=== PATIENT | female | born 1945 | race Caucasian/White ===

== ENCOUNTER → 2017-03-08 | Outpatient (CLI) | payer MEDICARE ==
[~2017-03-08] MED LIST: ACCOLATE20 MG PO; ASPIRIN81 M1 PO; BIOTIN1000 MCG PO; CIPRO500 MG PO; DAILY VITAMIN1 TAB PO; DELTASONE20 MG PO; DULE1ARO1 INH; DUONEB 3 MG/3 ML3 M1 INH; ESIDREX,ORETI12.5 MG PO; LIPITOR40 MG PO; LISINOPRIL20 MG PO; LOPRESSOR25 MG PO; LYRICA75 M1 PO; MOTRIN800 MG PO; NEURONTIN600 MG PO; NITROSTAT0.4 MG SL; PLAVIX75 MG PO; PREDNISONE5 MG PO; PRINIVIL40 MG PO; RESTORIL30 M1 PO; SYNTHROID,LEV100 MCG PO; THYROXIN PO; ULTRAM50 MG PO; ZYRTEC10 MG PO; ZYRTEC5 M1 PO
[2017-03-08 08:04] LABS: BASO # 0.1 10*3/uL (0.0-0.1); BASO % 0.6 % (0.0-1.0); EOS # 0.3 10*3/uL (0.0-0.4); EOS % 3.9 % (1.0-4.0); HEMATOCRIT 40.8 % (37.0-47.0); HEMOGLOBIN 12.9 g/dl (12.0-16.0); LYMPH # 2.8 10*3/uL (1.3-4.4); LYMPH % 34.8 % (27.0-41.0); MEAN CELL VOLUME 92.5 fl (81.0-99.0); MEAN CORPUSCULAR HGB 29.3 pg (27.0-31.0); MEAN CORPUSCULAR HGB CONC 31.6 g/dl (33.0-37.0); MONO % 12.3 % (3.0-9.0); NEUT # 3.8 10*3/uL (2.3-7.9); NEUT % 48.1 % (47.0-73.0); PLATELET COUNT AUTOMATED 279 10*3/uL (130-400); RED BLOOD COUNT 4.41 10*6/uL (4.10-5.10); RED CELL DISTRI WIDTH 13.2 % (0-14.5); WHITE BLOOD COUNT 7.9 10*3/uL (4.8-10.8)
[2017-03-08 08:31] LABS: ALBUMIN 3.2 gm/dl (3.1-4.5); ALKALINE PHOSPHATASE 111 U/L (45-117); BILIRUBIN, DIRECT 0.2 mg/dL (0.0-0.2); BILIRUBIN, TOTAL 1.3 mg/dl (0.2-1.0); BUN 15 mg/dl (7-24); CARBON DIOXIDE 30 mmol/L (21-32); CHLORIDE 107 mmol/L (98-107); CHOLESTEROL 132 mg/dL (<200); EST GLOM FILT AFRICAN AMERICAN > 60 ml/min; GLUCOSE 94 mg/dL (65-99); HDL CHOLESTEROL 60 mg/dl (40-60); LDL CHOLESTEROL 47 mg/dL (9-159); POTASSIUM 3.9 mmol/L (3.5-5.1); SGOT/AST 30 IU/L (3-35); SGPT/ALT 27 U/L (12-78); SODIUM 144 mmol/L (136-145); TOTAL PROTEIN 7.3 gm/dL (6.4-8.2); TRIGLYCERIDES 125 mg/dl (<150); VLDL CHOLESTEROL 25 mg/dL (6-40)
== END | disposition home or self-care (01) ==
LOC: LAB 07:13 → CARD 08:00
PROVIDERS: Internal Medicine Interventional Cardiology
DX: I08.1 Rheumatic disorders of both mitral and tricuspid valves (principal); I25.10 Atherosclerotic heart disease of native coronary artery without angina pectoris; I37.1 Nonrheumatic pulmonary valve insufficiency

== ENCOUNTER 2017-07-27 07:09 | Inpatient (IN) | payer MEDICARE ==
[~2017-07-27] VITALS: Ht 162.5 cm; Wt 95.3 kg
--- NOTE | ~2017-07-27 | WRIGHTHP ---
[place], [place] PATIENT HISTORY AND PHYSICAL EXAM [id number] UN[facility] #: [id number] ROOM: 421 DOCTOR: SHREE HERRING MD BIRTHDATE: [birth year] DOS: 07/27/2017 HISTORY OF PRESENT ILLNESS: The patient is 72 years old. The patient is very well known to us. She was on her way to [facility] for her swimming class yesterday morning. She got out of the car and was standing outside the car trying to get her bag out when she became dizzy. She thought she would stand for a few minutes so the dizziness to pass, but when she woke up, she was on the floor and had bruises on her face. The [facility] personnel called the ambulance and was brought to the emergency room. She does not have any history of incontinence of bowel or bladder, did not bite her tongue. She does not remember the events preceding to the syncopal episode. She denies having any chest pains or palpitations. She has been feeling good, but she has had 2 episodes where her legs would not move for her. She is unable to explain it properly, but she feels that her legs have their own mind, they feel floppy at times. She has been taking all her medications regularly. She has had some issues with hypotension recently and the meds have been slowly cut back. PAST MEDICAL HISTORY: 1. Coronary artery disease with history of stenting. 2. Benign hypertension. 3. Chronic back pain. 4. Spinal stenosis, multiple lumbar laminectomies with chronic peripheral neuropathy. 5. of the thyroid papillary with hypothyroidism. MEDICATIONS: She is on are levothyroxine, Neurontin, lisinopril, metoprolol, atorvastatin, aspirin, and Restoril p.r.n. SOCIAL HISTORY: Nonsmoker, does not use any alcohol. PHYSICAL EXAMINATION: GENERAL: The patient is awake and alert and oriented, able to tell me the story preceding this admission. VITAL SIGNS: Blood pressure is 110/59, pulse of 79, respirations 18, temperature 97.9. LUNGS: Diminished breath sounds. No wheezes, rales or rhonchi heard. HEART: Regular. ABDOMEN: Obese, soft, nontender. EXTREMITIES: Without any edema. ASSESSMENT AND PLAN: 1. Vasovagal syncope, most likely responsible for the event, but since she has had some neurological symptoms recently, we will go ahead and arrange for EEG and MRI of the brain as an outpatient. 2. History of coronary artery disease, a stress test will be scheduled as an outpatient. 3. Benign hypertension. Pressures are on the low side. She is advised to take the metoprolol in the morning. The lisinopril dosage will be cut down to 10 mg and she takes that in the evening. 4. Facial lacerations. Tetanus toxoid will be given today. [place], [place] PATIENT HISTORY AND PHYSICAL EXAM NAME: LUDY VELEZ UNIT #: [id number] ROOM: [facility] DOCTOR: SHREE HERRING MD BIRTHDATE: [birth year] SHREE HERRING MD CM:HISPHYS:PATIENT HISTORY AND PHYSICAL EXAMINATION 9 9 SHREE HERRING MD 07/28/17828 interface
[2017-07-27 07:15] VITALS: BP 144/78
[2017-07-27 07:44] LABS: BASO # 0.1 10*3/uL (0.0-0.1); BASO % 0.7 % (0.0-1.0); EOS # 0.3 10*3/uL (0.0-0.4); EOS % 3.7 % (1.0-4.0); HEMATOCRIT 42.9 % (37.0-47.0); HEMOGLOBIN 13.8 g/dl (12.0-16.0); LYMPH # 2.3 10*3/uL (1.3-4.4); LYMPH % 24.9 % (27.0-41.0); MEAN CELL VOLUME 88.1 fl (81.0-99.0); MEAN CORPUSCULAR HGB 28.3 pg (27.0-31.0); MEAN CORPUSCULAR HGB CONC 32.2 g/dl (33.0-37.0); MEAN PLATELET VOLUME 10.6 fl (9.6-12.3); MONO # 0.9 10*3/uL (0.1-1.0); MONO % 10.2 % (3.0-9.0); NEUT # 5.4 10*3/uL (2.3-7.9); NEUT % 60.1 % (47.0-73.0); PLATELET COUNT AUTOMATED 278 10*3/uL (130-400); RED BLOOD COUNT 4.87 10*6/uL (4.10-5.10); RED CELL DISTRI WIDTH 13.3 % (0-14.5)
[2017-07-27 08:00] LABS: BUN 11 mg/dl (7-24); CHLORIDE 105 mmol/L (98-107); CREATININE 0.93 mg/dL (0.55-1.02); POTASSIUM 3.9 mmol/L (3.5-5.1); SODIUM 140 mmol/L (136-145); TROPONIN I < 0.015 ng/ml (<0.045)
[2017-07-27 08:15] VITALS: BP 134/74
[2017-07-27 09:58] VITALS: BP 132/68
--- NOTE | 2017-07-27 09:58 | NUR ---
A 72, admitted to , under the services of SHREE Underwood MD with a diagnosis of SYNCOPE AND COLLAPSE, CONTUSION OF FACE. Chief complaint is SYNCOPE. Patient arrived via CART from ER. Monitor applied. Initial assessment completed. Vital signs taken and recorded. SHREE UNDERWOOD MD notified of admission to the unit. Orders received. See assessment for past medical history, medications and allergies. Patient and/or family oriented to unit. [facility] visitation policy reviewed. Clothing/patient valuable form completed. SHANNON NGUYEN
[2017-07-27] MEDS ORDERED: RESTORIL30 M1 PO (10:03)
[2017-07-27] MEDS ORDERED: GOOD NEIGHBOR650 MG PO (10:05)
[2017-07-27] MEDS ORDERED: NORVASC10 MG PO (10:08)
--- NOTE | 2017-07-27 10:15 | NUR ---
MED REQ UP TO DATE WOUNDS TO THE FACE AND LEFT CHEEK NOTED FROM SYNCOPAL EPISODE. PICTURES TAKEN PER PROTOCOL.
[2017-07-27] MEDS ORDERED: PAIN RELIEVER650 MG PO (10:50)
[2017-07-27] MEDS ORDERED: BIOTIN10000 MC1 PO (10:51)
--- NOTE | 2017-07-27 11:07 | NUR ---
LEFT MESSAGE WITH ANSWERING SERVICE REGARDING CONSULT FROM DR. MERIDA. WAITING A CALL BACK
--- NOTE | 2017-07-27 11:20 | NUR ---
DR. ROBERTSON CALLED IN AND STATED THAT HE IS COVERING FOR DR. MERIDA AND HE WILL BE HERE TO SEE THE PATIENT WITH IN THE HOUR.
[2017-07-27 12:00] VITALS: BP 112/57
[2017-07-27 16:00] VITALS: BP 115/55
--- NOTE | 2017-07-27 16:15 | NUR ---
PT. IS RESTING IN BED WITH HOB ELEVATED AND CALL LIGHT WITHIN REACH, VISITING WITH DAUGHTER. PT. HAS C/O HEADACHE AT THIS TIME, PRN TYLENOL IS UNABLE TO BE GIVEN AT THIS PRESENT MOMENT, WHEN ASKED IF SHE WANTED DR. HERRING CONTACTED FOR A STRONGER PAIN MEDICATION PT. DENIED. STATING "JUST BRING ME THE TYLENOL WHEN IT IS READY". SEE SHIFT ASSESSMENT.
--- NOTE | 2017-07-27 17:37 | NUR ---
PRN TYLENOL GIVEN FOR PT. C/O A HEADACHE, RATING PAIN A 4/10. WILL MONITOR EFFECT
--- NOTE | 2017-07-27 18:00 | NUR ---
PRN TYLENOL SEEMS EFFECTIVE, PT. IS SLEEPING COMFORTABLY IN BED AT THIS TIME. RESPERS ARE EASY AND REGULAR WITH NO DISTRESS NOTED AT THIS TIME. CALL LIGHT IS WITHIN REACH, WILL CONTINUE TO MONITOR.
[2017-07-27 20:00] VITALS: BP 119/53
[2017-07-28] VITALS: BP 110/59
[2017-07-28 06:13] LABS: BASO # 0.1 10*3/uL (0.0-0.1); BASO % 0.9 % (0.0-1.0); EOS # 0.3 10*3/uL (0.0-0.4); EOS % 4.8 % (1.0-4.0); LYMPH # 2.5 10*3/uL (1.3-4.4); LYMPH % 36.4 % (27.0-41.0); MEAN CELL VOLUME 89.2 fl (81.0-99.0); MEAN CORPUSCULAR HGB 29.1 pg (27.0-31.0); MEAN CORPUSCULAR HGB CONC 32.6 g/dl (33.0-37.0); MEAN PLATELET VOLUME 11.4 fl (9.6-12.3); MONO # 0.8 10*3/uL (0.1-1.0); MONO % 12.3 % (3.0-9.0); NEUT # 3.1 10*3/uL (2.3-7.9); NEUT % 45.3 % (47.0-73.0); PLATELET COUNT AUTOMATED 240 10*3/uL (130-400); RED BLOOD COUNT 3.99 10*6/uL (4.10-5.10); RED CELL DISTRI WIDTH 13.5 % (0-14.5); WHITE BLOOD COUNT 6.7 10*3/uL (4.8-10.8)
[2017-07-28 06:14] LABS: HEMATOCRIT 35.6 % (37.0-47.0); HEMOGLOBIN 11.6 g/dl (12.0-16.0)
[2017-07-28 08:00] VITALS: BP 124/82; BP 146/76
[2017-07-28] MEDS ORDERED: LISINOPRIL20 MG PO ×2 (08:03→08:07)
--- NOTE | 2017-07-28 11:11 | NUR ---
[facility] Discharge instructions reviewed with patient/family. Patient receptive and verbalizes understanding. Follow-up care arranged. Written instructions given to patient/family. REGINALD MANUEL
== END 2017-07-28 11:11 | disposition home or self-care (01) | DRG 312 ==
LOC: ED 07:09 → EDHOLD 09:00 → 4E 09:54
PROVIDERS: Emergency Medicine; ADMIT Internal Medicine
DX: R55 Syncope and collapse (principal); G62.9 Polyneuropathy, unspecified; S00.83XA Contusion of other part of head, initial encounter; E66.9 Obesity, unspecified; I10 Essential (primary) hypertension; E89.0 Postprocedural hypothyroidism; G89.29 Other chronic pain; M54.9 Dorsalgia, unspecified; M48.061 Spinal stenosis, lumbar region without neurogenic claudication; I25.10 Atherosclerotic heart disease of native coronary artery without angina pectoris; W18.39XA Other fall on same level, initial encounter; Z98.61 Coronary angioplasty status; Z91.041 Radiographic dye allergy status; Z88.8 Allergy status to other drugs, medicaments and biological substances; Z79.899 Other long term (current) drug therapy; Z79.82 Long term (current) use of aspirin; Z98.51 Tubal ligation status; Z83.3 Family history of diabetes mellitus; Z82.49 Family history of ischemic heart disease and other diseases of the circulatory system; Y93.89 Activity, other specified; Y92.89 Other specified places as the place of occurrence of the external cause; Y99.8 Other external cause status

== ENCOUNTER → 2017-08-02 | Outpatient (CLI) | payer MEDICARE ==
[~2017-08-02] MED LIST changes: +BIOTIN10000 MC1 PO; +GOOD NEIGHBOR650 MG PO; +NORVASC10 MG PO; +PAIN RELIEVER650 MG PO
== END | disposition home or self-care (01) ==
LOC: MRI 09:26
DX: I25.9 Chronic ischemic heart disease, unspecified (principal)

== ENCOUNTER → 2017-08-15 | Outpatient (CLI) | payer MEDICARE | END | disposition home or self-care (01) | LOC: CP 00:40 | DX: R51 Headache (principal) ==

== ENCOUNTER → 2017-11-14 | Outpatient (CLI) | payer MEDICARE | END | disposition home or self-care (01) | LOC: MAMMO 10:13 | DX: Z12.31 Encounter for screening mammogram for malignant neoplasm of breast (principal); Z13.820 Encounter for screening for osteoporosis; N95.9 Unspecified menopausal and perimenopausal disorder ==

== ENCOUNTER 2018-02-21 11:35 | Emergency (ER) | payer MEDICARE ==
[~2018-02-21] VITALS: Ht 162.5 cm; Wt 90.7 kg
[2018-02-21 12:40] LABS: BASO # 0.1 10*3/uL (0.0-0.1); BASO % 0.7 % (0.0-1.0); EOS # 0.2 10*3/uL (0.0-0.4); HEMATOCRIT 40.1 % (37.0-47.0); HEMOGLOBIN 12.7 g/dl (12.0-16.0); LYMPH # 2.4 10*3/uL (1.3-4.4); LYMPH % 29.9 % (27.0-41.0); MEAN CELL VOLUME 91.3 fl (81.0-99.0); MEAN CORPUSCULAR HGB 28.9 pg (27.0-31.0); MEAN CORPUSCULAR HGB CONC 31.7 g/dl (33.0-37.0); MEAN PLATELET VOLUME 11.2 fl (9.6-12.3); MONO # 0.9 10*3/uL (0.1-1.0); MONO % 11.1 % (3.0-9.0); NEUT # 4.5 10*3/uL (2.3-7.9); NEUT % 55.1 % (47.0-73.0); PLATELET COUNT AUTOMATED 250 10*3/uL (130-400); RED BLOOD COUNT 4.39 10*6/uL (4.10-5.10); RED CELL DISTRI WIDTH 13.2 % (0-14.5); WHITE BLOOD COUNT 8.1 10*3/uL (4.8-10.8)
[2018-02-21 13:25] LABS: BILIRUBIN NEGATIVE (NEGATIVE); BLOOD NEGATIVE (NEGATIVE); CLARITY CLOUDY (CLEAR); COLOR YELLOW (YELLOW); GLUCOSE NEGATIVE (NEGATIVE); KETONE NEGATIVE (NEGATIVE); LEUKO ESTERASE 1+ (NEGATIVE); NITRITE POSITIVE (NEGATIVE); PH 5.5 (5.0-9.0); SPECIFIC GRAVITY 1.015 (1.005-1.030)
[2018-02-21 13:32] LABS: BACTERIA 4+
[2018-02-21 13:43] LABS: ALKALINE PHOSPHATASE 103 U/L (45-117); BUN 12 mg/dl (7-24); CHLORIDE 111 mmol/L (98-107); CREATININE 0.76 mg/dL (0.55-1.02); LIPASE 95 U/L (73-393); POTASSIUM 3.9 mmol/L (3.5-5.1); SGOT/AST 17 IU/L (3-35); SGPT/ALT 15 U/L (12-78); SODIUM 144 mmol/L (136-145); TOTAL PROTEIN 6.6 gm/dL (6.4-8.2)
[2018-02-21 13:46] LABS: TROPONIN I < 0.015 ng/ml (<0.045)
[2018-02-21] MEDS ORDERED: MACROBID100 M1 PO (14:21)
== END 2018-02-21 14:25 | disposition home or self-care (01) ==
LOC: ED 11:35
PROVIDERS: Emergency Medicine
DX: N39.0 Urinary tract infection, site not specified (principal); I10 Essential (primary) hypertension; Z79.899 Other long term (current) drug therapy; Z79.82 Long term (current) use of aspirin; Z88.1 Allergy status to other antibiotic agents; Z91.041 Radiographic dye allergy status; Z88.8 Allergy status to other drugs, medicaments and biological substances

== ENCOUNTER → 2018-05-05 | Outpatient (CLI) | payer MEDICARE ==
[~2018-05-05] MED LIST changes: +MACROBID100 M1 PO
[2018-05-05 07:41] LABS: BASO # 0.1 10*3/uL (0.0-0.1); BASO % 0.6 % (0.0-1.0); EOS # 0.3 10*3/uL (0.0-0.4); EOS % 4.1 % (1.0-4.0); HEMATOCRIT 42.1 % (37.0-47.0); HEMOGLOBIN 13.3 g/dl (12.0-16.0); LYMPH # 2.8 10*3/uL (1.3-4.4); LYMPH % 33.3 % (27.0-41.0); MEAN CELL VOLUME 90.7 fl (81.0-99.0); MEAN CORPUSCULAR HGB 28.7 pg (27.0-31.0); MEAN CORPUSCULAR HGB CONC 31.6 g/dl (33.0-37.0); MEAN PLATELET VOLUME 11.2 fl (9.6-12.3); MONO % 11.4 % (3.0-9.0); NEUT # 4.2 10*3/uL (2.3-7.9); NEUT % 50.4 % (47.0-73.0); PLATELET COUNT AUTOMATED 249 10*3/uL (130-400); RED BLOOD COUNT 4.64 10*6/uL (4.10-5.10); RED CELL DISTRI WIDTH 13.1 % (0-14.5); WHITE BLOOD COUNT 8.3 10*3/uL (4.8-10.8)
[2018-05-05 08:07] LABS: ALBUMIN 3.2 gm/dl (3.1-4.5); BUN 11 mg/dl (7-24); CHLORIDE 106 mmol/L (98-107); CHOLESTEROL 154 mg/dL (<200); CREATININE 0.79 mg/dL (0.55-1.02); POTASSIUM 4.1 mmol/L (3.5-5.1); SGOT/AST 13 IU/L (3-35); SGPT/ALT 14 U/L (12-78); SODIUM 141 mmol/L (136-145); TRIGLYCERIDES 140 mg/dl (<150); VLDL CHOLESTEROL 28 mg/dL (6-40)
[2018-05-05 08:15] LABS: ALKALINE PHOSPHATASE 108 U/L (45-117); CPK 110 U/L (26-192); FREE T4 1.63 ng/dl (0.76-1.46); HDL CHOLESTEROL 53 mg/dl (40-60); LDL CHOLESTEROL 73 mg/dL (9-159); THYROID STIM HORMONE (HS) 0.019 uIU/ml (0.358-4.75)
[2018-05-05 09:09] LABS: VITAMIN D, 25-HYDROXY 27.7 ng/mL (30-100)
== END | disposition home or self-care (01) ==
LOC: LAB 06:59
PROVIDERS: Internal Medicine
DX: R53.81 Other malaise (principal); E55.9 Vitamin D deficiency, unspecified; R74.8 Abnormal levels of other serum enzymes; D51.9 Vitamin B12 deficiency anemia, unspecified; D52.9 Folate deficiency anemia, unspecified; R79.89 Other specified abnormal findings of blood chemistry; E78.2 Mixed hyperlipidemia; E03.9 Hypothyroidism, unspecified

== ENCOUNTER → 2018-06-13 | Day surgery (SDC) | payer MEDICARE ==
[~2018-06-13] VITALS: Ht 162.5 cm; Wt 88.5 kg
[~2018-06-13] MED LIST changes: +PRAVASTATIN SOD40 MG PO
--- NOTE | ~2018-06-13 | PROC NOTE ---
[place], [place] PROCEDURE NOTE NAME: LUDY VELEZ UNIT #: [id number] ROOM: DOCTOR: KEILA KHOURY,FERMÍN BIRTHDATE: [birth year] DOS: PROCEDURE: Colonoscopy and polypectomy. INDICATIONS: Colon cancer screening and a family history of colon cancer. Informed consent was obtained from the patient after indication of procedures, the procedures, the alternatives, and potential complications were explained to her. PROCEDURE MEDICATION: Sedation was administered by Anesthesiology Department. Scope used was Olympus pediatric colonoscope variable stiffness GIF-180, depth of insertion was to the cecum, which was identified by the usual landmarks, the appendiceal orifice, ileocecal valve and triangular fold, in addition to transillumination in the right lower quadrant. FINDINGS: After adequate sedation, the patient was placed in left lateral decubitus position. Rectal examination showed a normal sphincter tone and no external hemorrhoids. Scope was introduced into the rectum, then advanced to the cecum. No difficulty. The prep was adequate. Colon mucosa showed three polyps. An 8 mm descending colon polyp and 2 rectal polyps, 8 and 10 mm in diameter. Both polyps were removed with the cold mini snare and recovered. The remaining colon mucosa appeared within normal range with no evidence of diverticular ulcerations or obstructing lesions. Retroflexed views in the rectum showed grade 1 internal hemorrhoids. The scope was then withdrawn after the rectum was decompressed. The patient tolerated the procedure well. IMPRESSION: 1. Colon polyps x3, removed. 2. Small internal hemorrhoids. PLAN: We will review the histopathology report and treat the patient accordingly. Office followup will be scheduled in 2-3 weeks. FERMÍN PEDRAZA MD CM:PROCNOTE:PROCEDURE NOTE [id number] SHREE PEDRAZA MD
[2018-06-13 07:00] VITALS: BP 163/61
[2018-06-13 08:38] VITALS: BP 135/60
[2018-06-13 08:50] VITALS: BP 147/60
[2018-06-13 09:09] VITALS: BP 152/64
== END | disposition home or self-care (01) ==
LOC: SDC 06-10 02:00
DX: D12.8 Benign neoplasm of rectum (principal); D12.4 Benign neoplasm of descending colon; K63.5 Polyp of colon; K64.0 First degree hemorrhoids; I10 Essential (primary) hypertension; I25.10 Atherosclerotic heart disease of native coronary artery without angina pectoris; I25.2 Old myocardial infarction; E78.5 Hyperlipidemia, unspecified; E66.9 Obesity, unspecified; G89.29 Other chronic pain; G62.9 Polyneuropathy, unspecified; E89.0 Postprocedural hypothyroidism; J45.909 Unspecified asthma, uncomplicated; Z98.51 Tubal ligation status; Z98.890 Other specified postprocedural states; Z88.5 Allergy status to narcotic agent; Z88.8 Allergy status to other drugs, medicaments and biological substances; Z91.041 Radiographic dye allergy status; Z95.5 Presence of coronary angioplasty implant and graft; Z68.33 Body mass index [BMI] 33.0-33.9, adult; Z80.0 Family history of malignant neoplasm of digestive organs; Z82.49 Family history of ischemic heart disease and other diseases of the circulatory system

== ENCOUNTER → 2018-08-01 | Outpatient (CLI) | payer MEDICARE | END | disposition home or self-care (01) | LOC: LAB 07:38 | DX: R73.9 Hyperglycemia, unspecified (principal) ==

== ENCOUNTER → 2018-08-04 | Outpatient (CLI) | payer MEDICARE | END | disposition home or self-care (01) | LOC: MRI 01:53 | DX: M47.892 Other spondylosis, cervical region (principal); M48.02 Spinal stenosis, cervical region ==

== ENCOUNTER → 2018-10-02 | Outpatient (CLI) | payer MEDICARE | END | disposition home or self-care (01) | DX: M54.5 Low back pain (principal) ==

== ENCOUNTER → 2019-02-26 | Outpatient (CLI) | payer MEDICARE | END | disposition home or self-care (01) | LOC: MAMMO 10:30 | DX: Z12.31 Encounter for screening mammogram for malignant neoplasm of breast (principal); N95.9 Unspecified menopausal and perimenopausal disorder; M85.88 Other specified disorders of bone density and structure, other site ==

== ENCOUNTER → 2019-04-30 | Outpatient (CLI) | payer MEDICARE ==
[2019-04-30 07:43] LABS: BASO % 0.4 % (0.0-1.0); EOS # 0.6 10*3/uL (0.0-0.4); EOS % 6.3 % (1.0-4.0); HEMATOCRIT 43.6 % (37.0-47.0); HEMOGLOBIN 13.8 g/dl (12.0-16.0); LYMPH # 2.7 10*3/uL (1.3-4.4); LYMPH % 30.2 % (27.0-41.0); MEAN CELL VOLUME 93.4 fl (81.0-99.0); MEAN CORPUSCULAR HGB 29.6 pg (27.0-31.0); MEAN CORPUSCULAR HGB CONC 31.7 g/dl (33.0-37.0); MEAN PLATELET VOLUME 10.9 fl (9.6-12.3); MONO # 0.8 10*3/uL (0.1-1.0); MONO % 9.4 % (3.0-9.0); NEUT # 4.8 10*3/uL (2.3-7.9); NEUT % 53.3 % (47.0-73.0); PLATELET COUNT AUTOMATED 276 10*3/uL (130-400); RED BLOOD COUNT 4.67 10*6/uL (4.10-5.10); RED CELL DISTRI WIDTH 12.8 % (0-14.5)
[2019-04-30 08:14] LABS: ALBUMIN 3.3 gm/dl (3.1-4.5); ALKALINE PHOSPHATASE 88 U/L (45-117); BUN 16 mg/dl (7-24); CHLORIDE 108 mmol/L (98-107); CHOLESTEROL 155 mg/dL (<200); CREATININE 0.81 mg/dL (0.55-1.02); FREE T4 1.57 ng/dl (0.76-1.46); HDL CHOLESTEROL 60 mg/dl (40-60); LDL CHOLESTEROL 78 mg/dL (9-159); POTASSIUM 3.8 mmol/L (3.5-5.1); SGOT/AST 13 IU/L (3-35); SGPT/ALT 16 U/L (12-78); SODIUM 141 mmol/L (136-145); TRIGLYCERIDES 86 mg/dl (<150); VLDL CHOLESTEROL 17 mg/dL (6-40)
[2019-04-30 08:19] LABS: THYROID STIM HORMONE (HS) 0.033 uIU/ml (0.358-4.75)
[2019-04-30 09:36] LABS: VITAMIN D, 25-HYDROXY 41.6 ng/mL (30-100)
== END | disposition home or self-care (01) ==
LOC: LAB 07:08
PROVIDERS: Internal Medicine
DX: Z13.1 Encounter for screening for diabetes mellitus (principal); E78.2 Mixed hyperlipidemia; E53.8 Deficiency of other specified B group vitamins; E55.9 Vitamin D deficiency, unspecified; I10 Essential (primary) hypertension

== ENCOUNTER → 2020-02-15 | Outpatient (CLI) | payer MEDICARE | END | disposition home or self-care (01) | LOC: CT 10:00 | DX: N28.1 Cyst of kidney, acquired (principal); K82.8 Other specified diseases of gallbladder; M47.816 Spondylosis without myelopathy or radiculopathy, lumbar region ==

== ENCOUNTER → 2020-03-09 | Outpatient (CLI) | payer MEDICARE | END | disposition home or self-care (01) | LOC: US 10:23 | DX: N28.1 Cyst of kidney, acquired (principal) ==

== ENCOUNTER → 2020-05-24 | Outpatient (CLI) | payer MEDICARE ==
[~2020-05-24] MED LIST changes: +CEFUROXIME AXE500 MG PO
[2020-05-24 08:23] LABS: BASO % 0.5 % (0.0-1.0); EOS # 0.3 10*3/uL (0.0-0.4); EOS % 3.6 % (1.0-4.0); HEMATOCRIT 45.4 % (37.0-47.0); LYMPH # 2.3 10*3/uL (1.3-4.4); LYMPH % 28.8 % (27.0-41.0); MEAN CELL VOLUME 92.8 fl (81.0-99.0); MEAN CORPUSCULAR HGB CONC 31.3 g/dl (33.0-37.0); MEAN PLATELET VOLUME 10.9 fl (9.6-12.3); MONO # 0.9 10*3/uL (0.1-1.0); MONO % 10.9 % (3.0-9.0); NEUT # 4.4 10*3/uL (2.3-7.9); NEUT % 55.3 % (47.0-73.0); PLATELET COUNT AUTOMATED 317 10*3/uL (130-400); RED BLOOD COUNT 4.89 10*6/uL (4.10-5.10); RED CELL DISTRI WIDTH 12.6 % (0-14.5)
[2020-05-24 08:40] LABS: ALBUMIN 3.2 gm/dl (3.1-4.5); ALKALINE PHOSPHATASE 102 U/L (45-117); BUN 13 mg/dl (7-24); CHLORIDE 109 mmol/L (98-107); CHOLESTEROL 175 mg/dL (<200); CREATININE 0.78 mg/dL (0.55-1.02); FREE T4 1.43 ng/dl (0.76-1.46); HDL CHOLESTEROL 55 mg/dl (40-60); LDL CHOLESTEROL 102 mg/dL (9-159); POTASSIUM 4.1 mmol/L (3.5-5.1); SGOT/AST 13 IU/L (3-35); SGPT/ALT 14 U/L (12-78); SODIUM 144 mmol/L (136-145); TOTAL PROTEIN 7.6 gm/dL (6.4-8.2); TRIGLYCERIDES 90 mg/dl (<150); VLDL CHOLESTEROL 18 mg/dL (6-40)
[2020-05-24 08:44] LABS: THYROID STIM HORMONE (HS) 0.011 uIU/ml (0.358-4.75)
[2020-05-24 09:25] LABS: VITAMIN D, 25-HYDROXY 49.4 ng/mL (30-100)
== END | disposition home or self-care (01) ==
LOC: LAB 07:15
PROVIDERS: Internal Medicine
DX: M48.062 Spinal stenosis, lumbar region with neurogenic claudication (principal); E03.9 Hypothyroidism, unspecified; I10 Essential (primary) hypertension; R21 Rash and other nonspecific skin eruption; B35.4 Tinea corporis; R70.0 Elevated erythrocyte sedimentation rate; R79.82 Elevated C-reactive protein (CRP); R74.8 Abnormal levels of other serum enzymes; R79.89 Other specified abnormal findings of blood chemistry; R53.81 Other malaise; E55.9 Vitamin D deficiency, unspecified

== ENCOUNTER → 2020-07-29 | Outpatient (CLI) | payer MEDICARE ==
[~2020-07-29] MED LIST changes: +CYMBALTA30 MG PO
== END | disposition home or self-care (01) ==
LOC: COVID19 00:24
PROVIDERS: ATTEND Ophthalmology
DX: Z01.812 Encounter for preprocedural laboratory examination (principal); Z20.828 Contact with and (suspected) exposure to other viral communicable diseases

== ENCOUNTER → 2020-08-03 | Day surgery (SDC) | payer MEDICARE ==
[~2020-08-03] VITALS: Ht 167.6 cm; Wt 83.9 kg
[2020-08-03 07:22] VITALS: BP 149/61
[2020-08-03 08:21] VITALS: BP 144/65
[2020-08-03 08:36] VITALS: BP 144/66
[2020-08-03 08:51] VITALS: BP 144/65
== END ==
LOC: SDC 07-29 11:45
PROVIDERS: ATTEND Ophthalmology
DX: H25.812 Combined forms of age-related cataract, left eye (principal); I10 Essential (primary) hypertension; I25.10 Atherosclerotic heart disease of native coronary artery without angina pectoris; Z95.5 Presence of coronary angioplasty implant and graft; J45.909 Unspecified asthma, uncomplicated; Z88.1 Allergy status to other antibiotic agents; Z88.2 Allergy status to sulfonamides; Z98.890 Other specified postprocedural states; Z98.51 Tubal ligation status; Z88.8 Allergy status to other drugs, medicaments and biological substances; Z79.899 Other long term (current) drug therapy

== ENCOUNTER 2020-10-24 12:29 | Inpatient (IN) | payer MEDICARE ==
[~2020-10-24] VITALS: Ht 162.5 cm; Wt 83.5 kg
[2020-10-24 12:56] VITALS: BP 130/62
[2020-10-24 13:05] LABS: BASO % 0.5 % (0.0-1.0); EOS # 0.1 10*3/uL (0.0-0.4); EOS % 0.8 % (1.0-4.0); HEMATOCRIT 44.1 % (37.0-47.0); LYMPH # 1.2 10*3/uL (1.3-4.4); LYMPH % 16.3 % (27.0-41.0); MEAN CELL VOLUME 93.4 fl (81.0-99.0); MEAN CORPUSCULAR HGB 29.4 pg (27.0-31.0); MEAN CORPUSCULAR HGB CONC 31.5 g/dl (33.0-37.0); MEAN PLATELET VOLUME 10.6 fl (9.6-12.3); MONO # 0.2 10*3/uL (0.1-1.0); MONO % 2.8 % (3.0-9.0); NEUT # 5.9 10*3/uL (2.3-7.9); NEUT % 78.9 % (47.0-73.0); PLATELET COUNT AUTOMATED 303 10*3/uL (130-400); RED BLOOD COUNT 4.72 10*6/uL (4.10-5.10); RED CELL DISTRI WIDTH 12.8 % (0-14.5); WHITE BLOOD COUNT 7.5 10*3/uL (4.8-10.8)
[2020-10-24 13:17] LABS: ACT PARTIAL THROMBO TIME 28.1 SECONDS (20.0-32.1)
[2020-10-24 13:22] LABS: ALBUMIN 3.3 gm/dl (3.1-4.5); ALKALINE PHOSPHATASE 77 U/L (45-117); BUN 14 mg/dl (7-24); CHLORIDE 108 mmol/L (98-107); CREATININE 0.76 mg/dL (0.55-1.02); POTASSIUM 4.3 mmol/L (3.5-5.1); SGOT/AST 18 IU/L (3-35); SGPT/ALT 18 U/L (12-78); SODIUM 138 mmol/L (136-145); TOTAL PROTEIN 7.3 gm/dL (6.4-8.2)
[2020-10-24 13:23] LABS: TROPONIN I < 0.015 ng/ml (<0.045)
[2020-10-24 18:26] VITALS: BP 179/87
[2020-10-24] MEDS ORDERED: ZESTRIL20 MG PO (18:53)
[2020-10-24] MEDS ORDERED: OXYGEN NAS (18:54)
[2020-10-24 20:00] VITALS: BP 175/87
[2020-10-25] VITALS: BP 180/70
[2020-10-25 08:00] VITALS: BP 154/73
[2020-10-25 12:00] VITALS: BP 150/67
[2020-10-25 16:00] VITALS: BP 143/52
[2020-10-25 20:00] VITALS: BP 149/57
[2020-10-26] VITALS: BP 110/79
[2020-10-26 06:26] LABS: BASO % 0.1 % (0.0-1.0); HEMATOCRIT 41.3 % (37.0-47.0); LYMPH # 1.1 10*3/uL (1.3-4.4); LYMPH % 7.8 % (27.0-41.0); MEAN CELL VOLUME 92.2 fl (81.0-99.0); MEAN CORPUSCULAR HGB 29.2 pg (27.0-31.0); MEAN CORPUSCULAR HGB CONC 31.7 g/dl (33.0-37.0); MEAN PLATELET VOLUME 10.6 fl (9.6-12.3); MONO # 0.6 10*3/uL (0.1-1.0); MONO % 4.1 % (3.0-9.0); NEUT % 87.1 % (47.0-73.0); PLATELET COUNT AUTOMATED 340 10*3/uL (130-400); RED BLOOD COUNT 4.48 10*6/uL (4.10-5.10); WHITE BLOOD COUNT 13.8 10*3/uL (4.8-10.8)
[2020-10-26 06:45] LABS: BUN 23 mg/dl (7-24); CHLORIDE 109 mmol/L (98-107); CREATININE 0.68 mg/dL (0.55-1.02); POTASSIUM 4.1 mmol/L (3.5-5.1); SGOT/AST 30 IU/L (3-35); SGPT/ALT 21 U/L (12-78); SODIUM 140 mmol/L (136-145); TOTAL PROTEIN 6.6 gm/dL (6.4-8.2)
[2020-10-26 06:46] LABS: ALKALINE PHOSPHATASE 69 U/L (45-117)
[2020-10-26 08:00] VITALS: BP 151/71
[2020-10-26 11:58] VITALS: BP 156/64
[2020-10-26 16:00] VITALS: BP 151/73
[2020-10-26 20:00] VITALS: BP 143/60
[2020-10-27] VITALS: BP 167/58
[2020-10-27 07:04] LABS: BASO % 0.1 % (0.0-1.0); LYMPH % 8.1 % (27.0-41.0); MEAN CELL VOLUME 92.1 fl (81.0-99.0); MEAN CORPUSCULAR HGB 29.2 pg (27.0-31.0); MEAN CORPUSCULAR HGB CONC 31.7 g/dl (33.0-37.0); MONO % 7.8 % (3.0-9.0); NEUT # 10.6 10*3/uL (2.3-7.9); NEUT % 83.3 % (47.0-73.0); PLATELET COUNT AUTOMATED 327 10*3/uL (130-400); RED BLOOD COUNT 4.45 10*6/uL (4.10-5.10); RED CELL DISTRI WIDTH 12.9 % (0-14.5); WHITE BLOOD COUNT 12.7 10*3/uL (4.8-10.8)
[2020-10-27 07:22] LABS: ALBUMIN 2.8 gm/dl (3.1-4.5); BUN 25 mg/dl (7-24); CHLORIDE 111 mmol/L (98-107); CREATININE 0.77 mg/dL (0.55-1.02); POTASSIUM 4.3 mmol/L (3.5-5.1); SGOT/AST 22 IU/L (3-35); SODIUM 141 mmol/L (136-145)
[2020-10-27 07:24] LABS: ALKALINE PHOSPHATASE 72 U/L (45-117); SGPT/ALT 24 U/L (12-78); TOTAL PROTEIN 6.3 gm/dL (6.4-8.2)
[2020-10-27 08:00] VITALS: BP 148/63
[2020-10-27] MEDS ORDERED: CEFUROXIME AXE250 MG PO (09:06)
[2020-10-27] MEDS ORDERED: PREDNISONE5 MG PO (09:06)
[2020-10-27] MEDS ORDERED: BREO ELLIPTA 11 EACH DEVI (09:10)
== END 2020-10-27 10:55 | disposition home or self-care (01) | DRG 202 ==
LOC: ED 12:29 → EDHOLD 15:23 → 4E 15:23 → EDHOLD 15:24 → 4E 17:35
PROVIDERS: Emergency Medicine; Internal Medicine Critical Care Medicine; ADMIT Internal Medicine; ATTEND Internal Medicine
DX: J45.901 Unspecified asthma with (acute) exacerbation (principal); J44.1 Chronic obstructive pulmonary disease with (acute) exacerbation; J44.0 Chronic obstructive pulmonary disease with (acute) lower respiratory infection; E44.1 Mild protein-calorie malnutrition; J20.9 Acute bronchitis, unspecified; M48.00 Spinal stenosis, site unspecified; I10 Essential (primary) hypertension; Z20.822 Contact with and (suspected) exposure to COVID-19; E89.0 Postprocedural hypothyroidism; I25.10 Atherosclerotic heart disease of native coronary artery without angina pectoris; I44.7 Left bundle-branch block, unspecified; Z82.49 Family history of ischemic heart disease and other diseases of the circulatory system; Z83.3 Family history of diabetes mellitus; Z88.2 Allergy status to sulfonamides; Z88.1 Allergy status to other antibiotic agents; Z91.041 Radiographic dye allergy status; Z88.8 Allergy status to other drugs, medicaments and biological substances

== ENCOUNTER → 2021-05-25 | Outpatient (CLI) | payer MEDICARE ==
[~2021-05-25] MED LIST changes: +BREO ELLIPTA 11 EACH DEVI; +CEFUROXIME AXE250 MG PO; +OXYGEN NAS; +ZESTRIL20 MG PO
[2021-05-25 08:00] LABS: BASO # 0.1 10*3/uL (0.0-0.1); BASO % 0.8 % (0.0-1.0); EOS # 0.4 10*3/uL (0.0-0.4); EOS % 5.1 % (1.0-4.0); HEMATOCRIT 42.5 % (37.0-47.0); LYMPH # 2.6 10*3/uL (1.3-4.4); MEAN CELL VOLUME 92.2 fl (81.0-99.0); MEAN CORPUSCULAR HGB 29.7 pg (27.0-31.0); MEAN CORPUSCULAR HGB CONC 32.2 g/dl (33.0-37.0); MEAN PLATELET VOLUME 10.8 fl (9.6-12.3); MONO # 0.9 10*3/uL (0.1-1.0); NEUT # 3.7 10*3/uL (2.3-7.9); NEUT % 47.8 % (47.0-73.0); PLATELET COUNT AUTOMATED 256 10*3/uL (130-400); RED BLOOD COUNT 4.61 10*6/uL (4.10-5.10); RED CELL DISTRI WIDTH 12.9 % (0-14.5); WHITE BLOOD COUNT 7.8 10*3/uL (4.8-10.8)
[2021-05-25 08:26] LABS: ALBUMIN 3.2 gm/dl (3.1-4.5); ALKALINE PHOSPHATASE 86 U/L (45-117); BUN 13 mg/dl (7-24); CHLORIDE 110 mmol/L (98-107); CHOLESTEROL 165 mg/dL (<200); CREATININE 0.78 mg/dL (0.55-1.02); FREE T4 1.28 ng/dl (0.76-1.46); LDL CHOLESTEROL 84 mg/dL (9-159); POTASSIUM 4.2 mmol/L (3.5-5.1); SGOT/AST 14 IU/L (3-35); SGPT/ALT 15 U/L (12-78); SODIUM 144 mmol/L (136-145); TRIGLYCERIDES 142 mg/dl (<150)
[2021-05-25 08:30] LABS: THYROID STIM HORMONE (HS) 0.013 uIU/ml (0.358-4.75)
[2021-05-25 08:51] LABS: VITAMIN D, 25-HYDROXY 47.7 ng/mL (30-100)
== END | disposition home or self-care (01) ==
LOC: LAB 07:37 → RAD 14:00 → MAMMO 14:30
PROVIDERS: ATTEND Internal Medicine
DX: Z13.820 Encounter for screening for osteoporosis (principal); Z12.31 Encounter for screening mammogram for malignant neoplasm of breast; I10 Essential (primary) hypertension; E03.9 Hypothyroidism, unspecified; E78.2 Mixed hyperlipidemia; E55.9 Vitamin D deficiency, unspecified; Z78.0 Asymptomatic menopausal state

== ENCOUNTER → 2022-08-30 | Outpatient (CLI) | payer MEDICARE ==
[~2022-08-30] MED LIST changes: +AZITHROMYCIN500 M2 PO; +MELOXICAM7.5 MG PO
[2022-08-30 12:38] LABS: BASO # 0.1 10*3/uL (0.0-0.1); EOS # 0.3 10*3/uL (0.0-0.4); EOS % 3.8 % (1.0-4.0); HEMATOCRIT 49.4 % (37.0-47.0); LYMPH # 2.1 10*3/uL (1.3-4.4); LYMPH % 30.3 % (27.0-41.0); MEAN CELL VOLUME 92.2 fl (81.0-99.0); MEAN CORPUSCULAR HGB 29.3 pg (27.0-31.0); MEAN CORPUSCULAR HGB CONC 31.8 g/dl (33.0-37.0); MEAN PLATELET VOLUME 11.2 fl (9.6-12.3); MONO # 0.8 10*3/uL (0.1-1.0); MONO % 11.1 % (3.0-9.0); NEUT # 3.7 10*3/uL (2.3-7.9); NEUT % 52.9 % (47.0-73.0); PLATELET COUNT AUTOMATED 310 10*3/uL (130-400); RED BLOOD COUNT 5.36 10*6/uL (4.10-5.10); RED CELL DISTRI WIDTH 12.7 % (0-14.5)
[2022-08-30 13:19] LABS: FREE T4 1.72 ng/dl (0.89-1.76)
[2022-08-30 13:21] LABS: VITAMIN D, 25-HYDROXY 68.1 ng/mL (30-100)
[2022-08-30 13:23] LABS: ALKALINE PHOSPHATASE 81 U/L (46-116); BUN 14 mg/dl (9-23); CHLORIDE 102 mmol/L (98-107); CREATININE 0.88 mg/dL (0.55-1.02); POTASSIUM 4.1 mmol/L (3.4-5.1); SGPT/ALT 12 U/L (10-49); SODIUM 139 mmol/L (136-145); TRIGLYCERIDES 136 mg/dl (<150)
[2022-08-30 13:24] LABS: CHOLESTEROL 229 mg/dL (<200); LDL CHOLESTEROL 150 mg/dL (9-159); TOTAL PROTEIN 7.3 gm/dL (6.0-8.0)
== END | disposition home or self-care (01) ==
LOC: LAB 10:21 → MAMMO 10:30
PROVIDERS: ATTEND Internal Medicine
DX: Z12.31 Encounter for screening mammogram for malignant neoplasm of breast (principal); Z13.0 Encounter for screening for diseases of the blood and blood-forming organs and certain disorders involving the immune mechanism; Z13.89 Encounter for screening for other disorder; E55.9 Vitamin D deficiency, unspecified; I10 Essential (primary) hypertension

== ENCOUNTER → 2023-01-31 | Outpatient (CLI) | payer MEDICARE ==
[2023-01-31 08:14] LABS: CHOLESTEROL 171 mg/dL (<200); LDL CHOLESTEROL 92 mg/dL (9-159); TRIGLYCERIDES 118 mg/dl (<150)
== END | disposition home or self-care (01) ==
LOC: LAB 07:03
PROVIDERS: ATTEND Internal Medicine
DX: E78.2 Mixed hyperlipidemia (principal); I25.10 Atherosclerotic heart disease of native coronary artery without angina pectoris

== ENCOUNTER → 2023-03-13 | Outpatient (CLI) | payer MEDICARE | END | disposition home or self-care (01) | LOC: US 13:01 | PROVIDERS: ATTEND Internal Medicine | DX: I65.23 Occlusion and stenosis of bilateral carotid arteries (principal); I25.10 Atherosclerotic heart disease of native coronary artery without angina pectoris; R42 Dizziness and giddiness ==

== ENCOUNTER → 2023-05-16 | Outpatient (CLI) | payer MEDICARE | END | disposition home or self-care (01) | LOC: LAB 14:00 | PROVIDERS: ATTEND Internal Medicine | DX: R79.89 Other specified abnormal findings of blood chemistry (principal) ==

== ENCOUNTER → 2023-05-22 | Outpatient (CLI) | payer MEDICARE | END | disposition home or self-care (01) | LOC: CT 05-17 01:03 | PROVIDERS: ATTEND Internal Medicine | DX: K57.30 Diverticulosis of large intestine without perforation or abscess without bleeding (principal); I25.10 Atherosclerotic heart disease of native coronary artery without angina pectoris ==

== ENCOUNTER → 2023-11-25 | Outpatient (CLI) | payer MEDICARE ==
[2023-11-25 07:40] LABS: BASO # 0.1 10*3/uL (0.0-0.1); BASO % 0.8 % (0.0-1.0); EOS # 0.3 10*3/uL (0.0-0.4); EOS % 4.1 % (1.0-4.0); HEMATOCRIT 47.2 % (37.0-47.0); LYMPH # 2.4 10*3/uL (1.3-4.4); LYMPH % 36.1 % (27.0-41.0); MEAN CELL VOLUME 93.7 fl (81.0-99.0); MEAN CORPUSCULAR HGB 29.4 pg (27.0-31.0); MEAN CORPUSCULAR HGB CONC 31.4 g/dl (33.0-37.0); MEAN PLATELET VOLUME 10.9 fl (9.6-12.3); MONO # 0.7 10*3/uL (0.1-1.0); MONO % 10.8 % (3.0-9.0); NEUT # 3.2 10*3/uL (2.3-7.9); PLATELET COUNT AUTOMATED 269 10*3/uL (130-400); RED BLOOD COUNT 5.04 10*6/uL (4.10-5.10); RED CELL DISTRI WIDTH 12.8 % (0-14.5); WHITE BLOOD COUNT 6.7 10*3/uL (4.8-10.8)
[2023-11-25 08:17] LABS: ALKALINE PHOSPHATASE 71 U/L (46-116); BUN 17 mg/dl (9-23); CHLORIDE 107 mmol/L (98-107); CHOLESTEROL 175 mg/dL (<200); LDL CHOLESTEROL 96 mg/dL (9-159); POTASSIUM 4.3 mmol/L (3.4-5.1); SGPT/ALT 7 U/L (5-49); TOTAL PROTEIN 6.8 gm/dL (6.0-8.0); TRIGLYCERIDES 115 mg/dl (<150); VITAMIN D, 25-HYDROXY 52.8 ng/mL (30-100)
== END | disposition home or self-care (01) ==
LOC: LAB 07:16
PROVIDERS: ATTEND Internal Medicine
DX: Z13.0 Encounter for screening for diseases of the blood and blood-forming organs and certain disorders involving the immune mechanism (principal); I10 Essential (primary) hypertension; E55.9 Vitamin D deficiency, unspecified; Z13.1 Encounter for screening for diabetes mellitus; Z13.220 Encounter for screening for lipoid disorders; Z13.228 Encounter for screening for other metabolic disorders; Z13.29 Encounter for screening for other suspected endocrine disorder; Z13.6 Encounter for screening for cardiovascular disorders; Z13.89 Encounter for screening for other disorder; Z13.9 Encounter for screening, unspecified

== ENCOUNTER → 2024-10-26 | Outpatient (CLI) | payer MEDICARE | END | disposition home or self-care (01) | LOC: RAD 10:20 | PROVIDERS: ATTEND Internal Medicine | DX: M81.0 Age-related osteoporosis without current pathological fracture (principal); Z78.0 Asymptomatic menopausal state ==

== ENCOUNTER → 2025-01-07 | Outpatient (CLI) | payer MEDICARE ==
[2025-01-07 07:22] LABS: BASO # 0.1 10*3/uL (0.0-0.1); BASO % 0.6 % (0.0-1.0); EOS # 0.3 10*3/uL (0.0-0.4); EOS % 3.7 % (1.0-4.0); HEMATOCRIT 45.3 % (37.0-47.0); MEAN CELL VOLUME 93.4 fl (81.0-99.0); MEAN CORPUSCULAR HGB 29.7 pg (27.0-31.0); MEAN CORPUSCULAR HGB CONC 31.8 g/dl (33.0-37.0); MEAN PLATELET VOLUME 10.5 fl (9.6-12.3); MONO # 0.9 10*3/uL (0.1-1.0); MONO % 11.4 % (3.0-9.0); NEUT # 4.6 10*3/uL (2.3-7.9); NEUT % 55.9 % (47.0-73.0); PLATELET COUNT AUTOMATED 269 10*3/uL (130-400); RED BLOOD COUNT 4.85 10*6/uL (4.10-5.10); RED CELL DISTRI WIDTH 12.9 % (0-14.5); WHITE BLOOD COUNT 8.2 10*3/uL (4.8-10.8)
[2025-01-07 08:11] LABS: ALKALINE PHOSPHATASE 74 U/L (46-116); BUN 15 mg/dl (9-23); CHLORIDE 106 mmol/L (98-107); CHOLESTEROL 163 mg/dL (<200); FREE T4 1.63 ng/dl (0.89-1.76); LDL CHOLESTEROL 87 mg/dL (9-159); POTASSIUM 4.7 mmol/L (3.4-5.1); SGPT/ALT 8 U/L (5-49); TOTAL PROTEIN 6.8 gm/dL (6.0-8.0); TRIGLYCERIDES 93 mg/dl (<150)
== END | disposition home or self-care (01) ==
LOC: LAB 07:03
PROVIDERS: ATTEND Internal Medicine
DX: I10 Essential (primary) hypertension (principal); E78.2 Mixed hyperlipidemia; R53.83 Other fatigue; E53.9 Vitamin B deficiency, unspecified; E55.9 Vitamin D deficiency, unspecified

== ENCOUNTER 2025-01-13 13:54 | Observation (INO) | payer MEDICARE ==
[~2025-01-13] VITALS: Ht 162.5 cm; Wt 65.8 kg
[~2025-01-13 13:54] MED LIST changes: -CLOPIDOGREL75 MG PO; -ELIQUIS5 M1 PO
[2025-01-13 14:02] VITALS: BP 154/54
[2025-01-13] MEDS ORDERED: CLOPIDOGREL75 MG PO (14:16)
[2025-01-13 14:43] LABS: BASO % 0.6 % (0.0-1.0); EOS # 0.4 10*3/uL (0.0-0.4); EOS % 5.6 % (1.0-4.0); HEMATOCRIT 42.2 % (37.0-47.0); MEAN CELL VOLUME 94.2 fl (81.0-99.0); MEAN CORPUSCULAR HGB 29.9 pg (27.0-31.0); MEAN CORPUSCULAR HGB CONC 31.8 g/dl (33.0-37.0); MEAN PLATELET VOLUME 10.6 fl (9.6-12.3); NEUT # 3.3 10*3/uL (2.3-7.9); NEUT % 48.3 % (47.0-73.0); PLATELET COUNT AUTOMATED 262 10*3/uL (130-400); RED BLOOD COUNT 4.48 10*6/uL (4.10-5.10); RED CELL DISTRI WIDTH 12.6 % (0-14.5); WHITE BLOOD COUNT 6.9 10*3/uL (4.8-10.8)
[2025-01-13 14:54] LABS: ACT PARTIAL THROMBO TIME 26.3 SECONDS (20.0-32.1)
[2025-01-13 15:05] LABS: ALKALINE PHOSPHATASE 73 U/L (46-116); BUN 17 mg/dl (9-23); CHLORIDE 105 mmol/L (98-107); POTASSIUM 4.5 mmol/L (3.4-5.1); TOTAL PROTEIN 6.4 gm/dL (6.0-8.0)
[2025-01-13 15:17] LABS: SGPT/ALT < 7 U/L (5-49)
[2025-01-13] MEDS ORDERED: Metoprolol Tartrate 25 MG TAB PO SCH (18:00)
[2025-01-13] MEDS ORDERED: GABAPENTIN 600 MG TAB PO SCH (18:00)
[2025-01-13] MEDS ORDERED: DULoxetine Hydrochloride 30 MG CAP PO SCH (18:00)
[2025-01-13 20:30] VITALS: BP 155/54
[2025-01-13] MEDS ORDERED: APIXABAN 5 MG TAB PO SCH (22:00)
[2025-01-13] MEDS ORDERED: SIMVASTATIN 20 MG TAB PO SCH (22:00)
[2025-01-13] MEDS ORDERED: LISINOPRIL 20 MG TAB PO SCH (22:00)
[2025-01-13] MEDS ORDERED: Enoxaparin Sodium 100 MG/ML SYR SC SCH (22:00)
[2025-01-14] VITALS: BP 180/63
[2025-01-14 08:00] VITALS: BP 190/88
[2025-01-14] MEDS ORDERED: Enoxaparin Sodium 60 MG/0.6 ML SYR SC ONE (08:10)
[2025-01-14] MEDS ORDERED: ELIQUIS5 M1 PO (08:22)
[2025-01-14] MEDS ORDERED: Levothyroxine Sodium 100 MCG TAB PO SCH (10:00)
== END 2025-01-14 10:00 | disposition home or self-care (01) ==
LOC: ED 13:54 → EDHOLD 15:32 → 5E 19:40
PROVIDERS: Nurse Practitioner Family; ADMIT Internal Medicine; ATTEND Internal Medicine
DX: I82.401 Acute embolism and thrombosis of unspecified deep veins of right lower extremity (principal); I25.10 Atherosclerotic heart disease of native coronary artery without angina pectoris; E78.2 Mixed hyperlipidemia; E03.9 Hypothyroidism, unspecified; E44.1 Mild protein-calorie malnutrition; I10 Essential (primary) hypertension; Z79.899 Other long term (current) drug therapy

== ENCOUNTER → 2025-01-13 | Outpatient (CLI) | payer MEDICARE ==
[~2025-01-13] MED LIST changes: +CLOPIDOGREL75 MG PO; +ELIQUIS5 M1 PO
== END | disposition home or self-care (01) ==
LOC: US 12:38
PROVIDERS: ATTEND Internal Medicine
DX: I82.441 Acute embolism and thrombosis of right tibial vein (principal); M17.11 Unilateral primary osteoarthritis, right knee; M25.561 Pain in right knee; R22.41 Localized swelling, mass and lump, right lower limb

== ENCOUNTER → 2025-02-01 | Outpatient (CLI) | payer MEDICARE ==
[~2025-02-01] MED LIST changes: +CLOPIDOGREL75 MG PO; +ELIQUIS5 M1 PO
== END | disposition home or self-care (01) ==
LOC: RAD 07:41
PROVIDERS: ATTEND Internal Medicine
DX: M16.0 Bilateral primary osteoarthritis of hip (principal)

== ENCOUNTER → 2025-02-10 | Outpatient (CLI) | payer MEDICARE ==
[~2025-02-10] MED LIST changes: +DENOSUMAB 60 MG/ML SYRINGE SC ONE
[2025-02-10 08:57] VITALS: BP 164/56
== END | disposition home or self-care (01) ==
LOC: INJECTION 08:42
PROVIDERS: ATTEND Internal Medicine
DX: M81.0 Age-related osteoporosis without current pathological fracture (principal)

== ENCOUNTER → 2025-03-10 | Outpatient (CLI) | payer MEDICARE ==
[~2025-03-10] MED LIST changes: -DENOSUMAB 60 MG/ML SYRINGE SC ONE
== END | disposition home or self-care (01) ==
LOC: US 14:14
PROVIDERS: ATTEND Internal Medicine
DX: I82.441 Acute embolism and thrombosis of right tibial vein (principal); R60.0 Localized edema

== ENCOUNTER → 2025-07-24 | Outpatient (CLI) | payer MEDICARE | END | disposition home or self-care (01) | LOC: US 00:53 | PROVIDERS: ATTEND Internal Medicine | DX: I82.491 Acute embolism and thrombosis of other specified deep vein of right lower extremity (principal) ==

== ENCOUNTER → 2025-09-08 | Outpatient (CLI) | payer MEDICARE | END | disposition home or self-care (01) | LOC: RAD 09:19 | PROVIDERS: ATTEND Internal Medicine | DX: R05.1 Acute cough (principal) ==

== ENCOUNTER 2025-09-16 13:52 | Inpatient (IN) | payer MEDICARE ==
[~2025-09-16] VITALS: Ht 162.5 cm; Wt 74.6 kg
[2025-09-16 14:00] VITALS: BP 124/52
[2025-09-16 14:55] LABS: BASO # 0.1 10*3/uL (0.0-0.1); BASO % 0.8 % (0.0-1.0); EOS # 0.2 10*3/uL (0.0-0.4); EOS % 2.6 % (1.0-4.0); MEAN CELL VOLUME 95.0 fl (81.0-99.0); MEAN CORPUSCULAR HGB 30.9 pg (27.0-31.0); MEAN PLATELET VOLUME 9.6 fl (9.6-12.3); MONO # 1.0 10*3/uL (0.1-1.0); MONO % 10.8 % (3.0-9.0); NEUT # 5.9 10*3/uL (2.3-7.9); NEUT % 64.3 % (47.0-73.0); NUCLEATED RED BLOOD CELL 0.0 % (0.0-0.0); NUCLEATED RED BLOOD CELL 0.0 10*3/uL (0.0-0.0); PLATELET COUNT AUTOMATED 375 10*3/uL (130-400); RED CELL DISTRI WIDTH 12.7 % (0-14.5)
[2025-09-16 15:25] LABS: BUN 16 mg/dl (9-23); CPK 1012 U/L (34-171); SGPT/ALT 27 U/L (5-49)
[2025-09-16] MEDS ORDERED: SODIUM CHLORIDE 0.9% 1,000 ML IV ONE ×2 (15:55→21:55)
[2025-09-16 16:06] LABS: BILIRUBIN Negative (Negative); BLOOD Negative (Negative); CLARITY Clear (Clear); COLOR Yellow (Yellow); KETONE Negative (Negative); LEUKO ESTERASE Trace (Negative); NITRITE Negative (Negative); PH 7.0 (4.5-8.0); SPECIFIC GRAVITY 1.010 (1.001-1.030); UROBILINOGEN 1.0 E.U./dl (0.0-1.0)
[2025-09-16 16:37] LABS: RBC 0-2 rbc/hpf (0-2)
[2025-09-16 16:38] LABS: BACTERIA 1+
[2025-09-16 17:00] VITALS: BP 164/75
[2025-09-16] MEDS ORDERED: ASPIRIN ADULT L81 M1 PO (17:20)
[2025-09-16 17:36] VITALS: BP 154/63
[2025-09-16 21:15] VITALS: BP 171/68
[2025-09-16] MEDS ORDERED: GABAPENTIN 600 MG TAB PO SCH (22:00)
[2025-09-16] MEDS ORDERED: LISINOPRIL 10 MG TAB PO SCH (22:00)
[2025-09-16] MEDS ORDERED: ACETAMINOPHEN 500 MG TAB PO PRN (22:25)
[2025-09-16] MEDS ORDERED: PLAVIX75 M1 PO (22:27)
[2025-09-17] VITALS: BP 142/56
[2025-09-17 08:00] VITALS: BP 170/60
[2025-09-17] MEDS ORDERED: diphenhydrAMINE HCL;LIDO HCL 1 OZ OZ PO SCH (14:00)
[2025-09-17 20:00] VITALS: BP 157/61
[2025-09-18] VITALS: BP 164/68
[2025-09-18 05:17] LABS: BUN 11 mg/dl (9-23)
[2025-09-18 06:00] LABS: BASO # 0.1 10*3/uL (0.0-0.1); BASO % 0.8 % (0.0-1.0); EOS # 0.3 10*3/uL (0.0-0.4); EOS % 4.3 % (1.0-4.0); MEAN CELL VOLUME 96.3 fl (81.0-99.0); MEAN CORPUSCULAR HGB 30.3 pg (27.0-31.0); MEAN PLATELET VOLUME 10.2 fl (9.6-12.3); MONO # 1.0 10*3/uL (0.1-1.0); MONO % 13.9 % (3.0-9.0); NEUT # 3.9 10*3/uL (2.3-7.9); NEUT % 53.5 % (47.0-73.0); NUCLEATED RED BLOOD CELL 0.0 % (0.0-0.0); NUCLEATED RED BLOOD CELL 0.0 10*3/uL (0.0-0.0); PLATELET COUNT AUTOMATED 330 10*3/uL (130-400); RED CELL DISTRI WIDTH 12.9 % (0-14.5)
[2025-09-18 08:00] VITALS: BP 149/68
[2025-09-18] MEDS ORDERED: CEFUROXIME250 MG PO ×2 (09:43→09:51)
[2025-09-18] MEDS ORDERED: Meloxicam 15 MG TAB PO SCH (10:00)
[2025-09-18] MEDS ORDERED: ASPIRIN, CHEWABLE 81 MG TAB PO SCH (10:00)
[2025-09-18] MEDS ORDERED: Clopidogrel Hydrogen Sulfate 75 MG TAB PO SCH (10:00)
== END 2025-09-18 12:44 | disposition home or self-care (01) | DRG 558 ==
LOC: ED 13:52 → EDHOLD 17:42 → 4E 17:42
PROVIDERS: Emergency Medicine; ADMIT Internal Medicine; ATTEND Internal Medicine
DX: M62.82 Rhabdomyolysis (principal); N30.90 Cystitis, unspecified without hematuria; I25.10 Atherosclerotic heart disease of native coronary artery without angina pectoris; M54.10 Radiculopathy, site unspecified; M48.00 Spinal stenosis, site unspecified; E89.0 Postprocedural hypothyroidism; Z20.822 Contact with and (suspected) exposure to COVID-19; R62.7 Adult failure to thrive; J44.9 Chronic obstructive pulmonary disease, unspecified; M15.9 Polyosteoarthritis, unspecified; I10 Essential (primary) hypertension; Z88.2 Allergy status to sulfonamides; Z88.8 Allergy status to other drugs, medicaments and biological substances; Z98.51 Tubal ligation status; Z83.3 Family history of diabetes mellitus; Z82.49 Family history of ischemic heart disease and other diseases of the circulatory system; Z68.28 Body mass index [BMI] 28.0-28.9, adult